=== PATIENT | female | born 1970 | race Two or more races ===

== ENCOUNTER 2021-10-25 14:18 | Emergency (ER) | payer OTHER ==
[~2021-10-25] VITALS: Ht 165.1 cm; Wt 78.0 kg
[2021-10-25] MEDS ORDERED: LANTUS SOL100 UNIT/1 (14:56)
[2021-10-25] MEDS ORDERED: ACTOS15 MG PO (14:56)
[2021-10-25] MEDS ORDERED: CIPRO500 MG PO (14:56)
[2021-10-25] MEDS ORDERED: STEGLUJAN 15-11 EACH PO (14:56)
[2021-10-25] MEDS ORDERED: ORPHENADRINE C100 MG PO (20:27)
[2021-10-25] MEDS ORDERED: DICLOFENAC POTA50 MG PO (20:27)
[2021-10-25] MEDS ORDERED: CYCLOBENZAPRINE10 MG PO (20:28)
== END 2021-10-25 20:49 | disposition home or self-care (01) ==
LOC: ER 14:18
DX: M54.32 Sciatica, left side (principal); E11.9 Type 2 diabetes mellitus without complications; Z79.4 Long term (current) use of insulin; M79.605 Pain in left leg

== ENCOUNTER 2024-12-10 07:05 | Emergency (ER) | payer OTHER ==
[~2024-12-10] VITALS: Ht 165.1 cm; Wt 86.2 kg
[~2024-12-10 07:05] MED LIST: ACTOS15 MG PO; CIPRO500 MG PO; CYCLOBENZAPRINE10 MG PO; DICLOFENAC POTA50 MG PO; LANTUS SOL100 UNIT/1; ORPHENADRINE C100 MG PO; STEGLUJAN 15-11 EACH PO
[2024-12-10] MEDS ORDERED: LACTULOSE 20 G/30 ML BLIST.PACK PO STA (07:46)
[2024-12-10] MEDS ORDERED: MINERAL OIL 30 ML BLIST.PACK PO STA (07:46)
[2024-12-10] MEDS ORDERED: FAMOTIDINE/PF 20 MG/2 ML VIAL IV PUSH STA (07:47)
[2024-12-10] MEDS ORDERED: MAGNESIUM HYDROXIDE 30 ML BLIST.PACK PO STA (07:47)
[2024-12-10] MEDS ORDERED: ONDANSETRON HCL 2 MG/ML VIAL IV STA (07:48)
[2024-12-10] MEDS ORDERED: KETOROLAC TROMETHAMINE 15 MG VIAL IV STA (07:49)
[2024-12-10] MEDS ORDERED: SODIUM CHLORIDE 0.45 % 1,000 ML IV STA (07:56)
[2024-12-10] MEDS ORDERED: KETOROLAC TROMETHAMINE 30 MG VIAL ONE (08:24)
[2024-12-10] MEDS ORDERED: ONDANSETRON HCL 2 MG/ML VIAL ONE (08:24)
[2024-12-10] MEDS ORDERED: MINERAL OIL 30 ML BLIST.PACK ONE (08:24)
[2024-12-10] MEDS ORDERED: LACTULOSE 20 G/30 ML BLIST.PACK ONE (08:24)
[2024-12-10] MEDS ORDERED: MAGNESIUM HYDROXIDE 30 ML BLIST.PACK PO ONE (08:24)
[2024-12-10] MEDS ORDERED: FAMOTIDINE/PF 20 MG/2 ML VIAL ONE (08:25)
[2024-12-10 08:49] LABS: BASO % 0.6 % (0.1-1.2); EOS # 0.05 (0.04-0.54); EOS % 1.0 % (0.7-7.0); LYMPH # 1.54 (1.18-3.74); LYMPH % 30.7 % (19.3-53.1); MEAN PLATELET VOLUME 9.60 fl (9.4-12.4); MONO # 0.35 (0.24-0.82); MONO % 7.0 % (4.7-12.5); NEUT # 2.99 (1.56-6.13); NEUT % 59.7 % (34.0-71.1); RED CELL DISTRIBUTION WIDTH 12.4 % (11.6-14.4)
[2024-12-10 09:41] LABS: ALT/SGPT 25.0 U/L (12-78); AST/SGOT 15.0 U/L (15-37); BILIRUBIN TOTAL 0.4 mg/dL (0.3-1.2); BUN CREA RATIO 20.0 (7.0-25.0); CREATININE SERUM 0.71 mg/dL (0.55-1.02); GFR 85.46; GLOBULINA 3.4 G/DL (2.4-3.5); OSMOLALITY SERUM 290.0 MOSM/KG (275-295)
[2024-12-10 09:45] LABS: GLUCOSE FASTING 254.0 mg/dL (65-100)
[2024-12-10 10:06] LABS: URINE APPEARANCE Clear; URINE BILIRRUBIN Negative (NEGATIVE); URINE BLOOD Negative; URINE COLOR Yellow; URINE KETONE Trace (NEGATIVE); URINE LEUKOCYTE Negative; URINE NITRATE Negative; URINE PROTEIN Negative (NEGATIVE); URINE UROBILINOGEN 0.2 E.U./dl
[2024-12-10 10:11] LABS: URINE BACTERIA 100.7 uL (0.0-1933); URINE EPITHELIAL CELLS 8.1 uL (0.0-38.8); URINE WBC 14.1 uL (0.0-23.2)
[2024-12-10 10:13] LABS: URINE CAST 0.14 uL (0.0-1.40); URINE GLUCOSE >=1000 MG/DL (NEGATIVE); URINE RBC 1.7 uL (0.0-20.8)
== END 2024-12-10 11:35 | disposition home or self-care (01) ==
LOC: ER 07:05
PROVIDERS: General Practice
DX: R51.9 Headache, unspecified (principal); E11.9 Type 2 diabetes mellitus without complications; Z79.4 Long term (current) use of insulin; M25.551 Pain in right hip